=== PATIENT | female | born 1980 | race Caucasian/White ===

== ENCOUNTER 2021-03-27 08:29 | Outpatient (CLI) | payer BC | END 2021-03-27 08:30 | disposition home or self-care (01) | LOC: CSHMAMMO 08:29 | DX: Z12.31 Encounter for screening mammogram for malignant neoplasm of breast (principal) | CPT/HCPCS: 77063; 77067 ==

== ENCOUNTER 2022-06-11 12:10 | Outpatient (CLI) | payer OTHER | END 2022-06-11 12:11 | disposition home or self-care (01) | LOC: CSHMAMMO 12:10 | PROVIDERS: ATTEND Nurse Practitioner Family | DX: Z12.31 Encounter for screening mammogram for malignant neoplasm of breast (principal) | CPT/HCPCS: 77063; 77067 ==